=== PATIENT | female | born 1985 | race African-American/Black ===

== ENCOUNTER 2017-08-24 11:33 | Emergency (ER) | payer MEDICAID, OTHER, SELFPAY ==
[~2017-08-24 11:33] MED LIST: Lidocaine 1% 20 ML MDV ONE
[2017-08-24 11:57] LABS: Bilirubin Negative (Negative); Blood, Urine Trace (Negative); Clarity Slightly Cloudy (Clear); Glucose, Urine (Dipstick) Negative (Negative); Leukocyte Moderate (Negative); Nitrite Negative (Negative); Protein, Urine (Dipstick) Negative (Neg-Trace); Urobilinogen 0.2 mg/dL (0.2-1.0); pH, Urine 6.5 (5.0-9.0)
[2017-08-24 12:00] LABS: Pregnancy Test - Urine (BHCG) Negative (Negative); Pregu Control Background? CLEAR/WHITE (CLR/WHITE); Pregu Control Bar Appear? YES (CONTROL BAR)
[2017-08-24 12:03] LABS: Bacteria/HPF 1+ HPF (None Seen); RBC/HPF 0-3 HPF (0-3); Squamous Epithelial 0-3 HPF (0-3); Trichomonas/HPF 1+ HPF (None Seen); WBC/HPF 0-3 HPF (0-3)
[2017-08-24] MEDS ORDERED: cefTRIAXone\\ROCEPHIN 500 MG VIAL ONE (12:05)
[2017-08-24] MEDS ORDERED: Doxycycline Hyclate 100 MG TAB ONE (12:05)
[2017-08-25 23:23] LABS: Chlamydia by PCR Not Detected (NotDetected); GC by PCR DETECTED (NotDetected)
== END 2017-08-24 12:25 | disposition home or self-care (01) ==
LOC: BURERS 11:33
DX: N72 Inflammatory disease of cervix uteri (principal); F17.210 Nicotine dependence, cigarettes, uncomplicated
CPT/HCPCS: 81003; 81015; 81025; 87480; 87491; 87510; 87591; 87660; 96372; J0696; J2001

== ENCOUNTER 2018-01-09 08:53 | Emergency (ER) | payer OTHER ==
[2018-01-09 09:17] LABS: Bilirubin Small (Negative); Blood, Urine Large (Negative); Clarity Cloudy (Clear); Glucose, Urine (Dipstick) Negative (Negative); Leukocyte Large (Negative); Nitrite Negative (Negative); Protein, Urine (Dipstick) 100 mg/dL (Neg-Trace); Urobilinogen 0.2 mg/dL (0.2-1.0); pH, Urine 5.5 (5.0-9.0)
[2018-01-09 09:18] LABS: Pregnancy Test - Urine (BHCG) Negative (Negative); Pregu Control Background? CLEAR/WHITE (CLR/WHITE); Pregu Control Bar Appear? YES (CONTROL BAR); Specific Gravity 1.023 (1.002-1.036)
[2018-01-09 09:22] LABS: Bacteria/HPF 1+ HPF (None Seen); RBC/HPF 21-50 HPF (0-3); Squamous Epithelial 0-3 HPF (0-3)
[2018-01-09] MEDS ORDERED: Amoxicillin/Potassium Clav 875 MG TAB ONE (10:15)
--- NOTE | 2018-01-09 10:47 | RAD ---
KUB: Date: 01/09/18 PROVIDED CLINICAL HISTORY: Foreign body in vaginal canal. FINDINGS: The abdominal bowel gas pattern is nonspecific. The osseous structures demonstrate no significant abn ormality. Probable phleboliths overlie the pelvis. There is no evidence for radiopaque foreign body. IMPRESSION: No radiopaque foreign body is evident overlying the visualized portions of the pelvis. POS: [facility]
[2018-01-10 21:00] LABS: Chlamydia by PCR Not Detected (NotDetected); GC by PCR Not Detected (NotDetected)
== END 2018-01-09 10:18 | disposition home or self-care (01) ==
LOC: BURERS 08:53
DX: S31.41XA Laceration without foreign body of vagina and vulva, initial encounter (principal); F17.210 Nicotine dependence, cigarettes, uncomplicated; X58.XXXA Exposure to other specified factors, initial encounter
CPT/HCPCS: 74018; 81003; 81015; 81025; 87480; 87491; 87510; 87591; 87660

== ENCOUNTER 2021-10-15 09:28 | Emergency (ER) | payer MEDICAID, OTHER ==
[2021-10-15 10:21] LABS: Hemoglobin 6.6 g/dL (12.0-16.0); Mean Corpuscular HGB CONC 27.9 g/dL (32.0-36.0); Mean Corpuscular Hemoglobin 15.6 pg (27.0-31.0); Mean Corpuscular Volume 55.9 fL (78.0-98.0); Mean Platelet Volume 7.4 fL (7.4-10.4); Platelet Count 1159 thou/uL (130-400); RBC Distribution Width 26.1 % (11.5-14.5); Red Blood Cell (RBC) Count 4.26 mill/uL (4.20-5.40); White Blood Cell (WBC) Count 6.6 thou/uL (4.8-10.8)
[2021-10-15 10:27] LABS: Anion Gap 14 mmol/L (10-20); BUN (Urea Nitrogen) 13 mg/dL (7.0-18.7); Calc. Creatinine Clearance 0 mL/min (70-130); Calcium 10.1 mg/dL (7.8-10.44); Carbon Dioxide 23 mmol/L (22-29); Chloride 104 mmol/L (98-107); Glucose 97 mg/dL (70-105); Potassium 4.3 mmol/L (3.5-5.1); Sodium 137 mmol/L (136-145)
[2021-10-15 10:49] LABS: #Basophils 0.1 thou/uL (0.0-0.2); #Eosinphils 0.3 thou/uL (0.0-0.7); #Lymphocytes 1.9 thou/uL (1.20-3.40); #Monocytes 0.6 thou/uL (0.11-0.59); #Neutrophils 3.7 thou/uL (1.40-6.50); %Basophils 1.4 % (0.0-1.0); %Eosinophils 4.2 % (0.0-10.0); %Lymphocytes 29.3 % (21.0-51.0); %Monocytes 9.3 % (0.0-10.0); %Neutrophils 55.8 % (42.0-75.0); Eosinophils 2 % (0-10); Hypochromia MODERATE=16-30 cells (100X) (0-5/hpf); Lymphocytes 38 % (21-51); MDiff Complete? YES; Microcytosis MODERATE=15-30 cells (100X) (0-5/hpf); Monocytes 6 % (0-10); Neutrophil 53 % (42-75); Platelet Morphology Comment Appears Increased; Schistocytes SLIGHT = 2-5 cells (100X) (0-1/hpf)
[2021-10-15 17:23] LABS: Iron 11 ug/dL (50-170); Iron Binding Capacity, Total 639 mcg/dL (265-497)
== END 2021-10-15 15:33 | disposition home or self-care (01) ==
LOC: BURERS 09:28
DX: O99.011 Anemia complicating pregnancy, first trimester (principal); O99.12 Other diseases of the blood and blood-forming organs and certain disorders involving the immune mechanism complicating childbirth; D75.839 Thrombocytosis, unspecified; Z3A.01 Less than 8 weeks gestation of pregnancy; Z87.891 Personal history of nicotine dependence
CPT/HCPCS: 36415; 36430; 80048; 82728; 83540; 83550; 84702; 85025; 86850; 86900; 86901; 99284; P9016